=== PATIENT | male | born 2005 | race Two or more races ===

== ENCOUNTER → 2024-08-25 | Outpatient (CLI) | payer OTHER, SELFPAY ==
--- NOTE | 2024-08-25 16:00 | XR_ITS ---
Examination: Ultrasound soft tissue extremity left upper arm TECHNIQUE: Multiple high-resolution grayscale sonographic images soft tissue upper left arm Exam date and time: August 25, 2024 1601 hours INDICATIONS: Tender palpable lump in the left upper arm noticed beginning one week ago FINDINGS: Soft tissue mass in the left upper arm at the area concern 16 x 5 x 12 mm most consistent with lipoma IMPRESSION: Soft tissue mass upper arm at the area concern most consistent with lipoma, recommend 6 month follow-up ultrasound soft tissue to document stability of this mass
== END | disposition home or self-care (01) ==
PROVIDERS: PCP Physician Assistant; Referring Provider Physician Assistant; Visit Provider Physician Assistant
DX: R22.32 Localized swelling, mass and lump, left upper limb (principal)
CPT/HCPCS: 76882